=== PATIENT | female | born 1985 | race Caucasian/White ===

== ENCOUNTER 2017-04-21 19:27 | Emergency (ER) | payer OTHER ==
--- NOTE | 2017-04-21 20:39 | EDM.PDOC ---
ED HPI GENERAL MEDICAL PROBLEM - General Chief Complaint: Upper Extremity Injury/Pain Stated Complaint: SWOLLEN/PAINFUL/BRUISED FINGERTIPS ON RIGHT HAND Time Seen by Provider: 04/21/17 20:08 Source of Information: Reports: Patient History Limitations: Reports: No Limitations - History of Present Illness INITIAL COMMENTS - FREE TEXT/NARRATIVE: Patient is a 32-year-old female who presents to the ED complaining of bruising to the pads of her fingers of the right hand. 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 Since onset the swelling has dissipated but the bruising has persisted. It is sensitive with touch. Otherwise she denies any additional complaints. She has no prior symptoms as such. There's been no recent activity that he precipitated this episode. There is no swelling to the remainder part of the hand/arm. She has no past history of carpal tunnel syndrome. Upon onset patient did have some tingling noted to her fingers and hand. It has also dissipated. Patient did complain of some slight increase in pain with walking in the cold. Denied any discoloration to her fingers. She has no history of raynauds. She denies any history of fever/chills, sob, chest pain , or any additional complaints. She has no past medical history and currently taking no medications. Right Hand Pain Score (Numeric/FACES): 5 - Related Data Allergies Allergy/AdvReac Type Severity Reaction Status Date / Time No Known Allergies Allergy Verified 04/21/17 19:38 Home Meds: Home Meds . 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 ED EXAM, GENERAL - Physical Exam Exam: See Below Exam Limited By: No Limitations General Appearance: Alert, WD/WN, No Apparent Distress Ears: Hearing Grossly Normal Nose: Normal Inspection Throat/Mouth: Normal Voice, No Airway Compromise Neck: Normal Inspection, Supple Respiratory/Chest: No Respiratory Distress, Lungs Clear, Normal Breath Sounds, No Accessory Muscle Use Cardiovascular: Normal Peripheral Pulses, Regular Rate, Rhythm, No Murmur Peripheral Pulses: 4+: Radial (L), Radial (R) Extremities: Normal Range of Motion, Non-Tender, No Pedal Edema, Normal Capillary Refill, Other (Faint bruising noted to the pads of the fingers second through fifth. Mild pain with palpation. No swelling present. Patient has full extension and flexion of the fingers. No sensory deficits noted. No pain with palpation of the wrist and forearm elbow upper arm. Skin is pink warm and dry. Tinels test was negative.) Neurological: Alert, Oriented, CN II-XII Intact, Normal Cognition, No Motor/ Sensory Deficits Course - Vital Signs Last Recorded V/S: Last Vital Signs Temp 98.7 F 04/21/17 19:38 Pulse 80 04/21/17 19:38 Resp 16 04/21/17 19:38 BP 141/90 H 04/21/17 19:38 Pulse Ox 99 04/21/17 19:38 - Orders/Labs/Meds Labs: Laboratory Tests 04/21/17 04/21/17 Range/Units 20:47 20:47 WBC 7.98 (3.98-10.04) K/mm3 RBC 4.69 (3.98-5.22) M/mm3 Hgb 13.9 (11.2-15.7) gm/L Hct 40.3 (34.1-44.9) % MCV 85.9 (79.4-94.8) fl MCH 29.6 (25.6-32.2) pg MCHC 34.5 (32.2-35.5) g/dl RDW Std Deviation 39.1 (36.4-46.3) fL Plt Count 276 (182-369) K/mm3 MPV 10.2 (9.4-12.3) fl Neut % (Auto) 63.3 (34.0-71.1) % Lymph % (Auto) 25.6 (19.3-51.7) % [place] % (Auto) 9.6 (4.7-12.5) % Eos % (Auto) 1.3 (0.7-5.8) Baso % (Auto) 0.1 (0.1-1.2) % Neut # (Auto) 5.05 (1.56-6.13) K/mm3 Lymph # (Auto) 2.04 (1.18-3.74) K/mm3 [place] # (Auto) 0.77 H (0.24-0.36) K/mm3 Eos # (Auto) 0.10 (0.04-0.36) K/mm3 Baso # (Auto) 0.01 (0.01-0.08) K/mm3 PT 11.0 (8.0-13.0) SECONDS INR 1.01 APTT 27 (22-36) SECONDS - Re-Assessments/Exams Free Text/Narrative Re-Assessment/Exam: Although patient does not have any history of bleeding disorder. Unclear etiology current complaint. Will obtain basic labs including CBC and PTT/INR. 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 Again I do not have a clear etiology for the current complaint. She has no other complaints on examination. Departure - Departure Time of Disposition: 21:40 Disposition: Home, Self-Care 01 Condition: Good Clinical Impression: Bruising - Discharge Information Referrals: PCP,None [Primary Care Provider] - Forms: ED Department Discharge Additional Instructions: As discussed unclear etiology current complaint. Labs obtained did not reveal any concerning findings. I would just monitor for any changes. Follow-up with primary care provider this following week for reevaluation. Refrain from any activities that cause discomfort to the right hand. Please return back to the ED if you develop any new or worsening symptoms.
== END 2017-04-21 21:48 | disposition home or self-care (01) ==
LOC: JD.ED 19:27
DX: S60.051A Contusion of right little finger without damage to nail, initial encounter (principal); S60.021A Contusion of right index finger without damage to nail, initial encounter; S60.031A Contusion of right middle finger without damage to nail, initial encounter; S60.041A Contusion of right ring finger without damage to nail, initial encounter; X58.XXXA Exposure to other specified factors, initial encounter; Y93.89 Activity, other specified
CPT/HCPCS: 36415; 85025; 85610; 85730; 99282; 99283

== ENCOUNTER 2018-01-15 08:47 | Inpatient (IN) | payer OTHER ==
--- NOTE | 2018-01-16 09:03 | PCM.LDHP ---
L&D History of Present Illness - General Date of Service: 01/16/18 Admit Problem/Dx: Admission Diagnosis/Problem Admission Diagnosis/Problem Source of Information: Patient History Limitations: Reports: No Limitations - History of Present Illness Introduction:: 32-year-old 004 [place] 01/16/18 at estimated gestational age 40 weeks 0 days for induction patient of Dr. Ramos. Blood type O-positive antibody screen negative on 07/04/17 hemoglobin hematocrit 14.9/41.9 platelets 233,000 rubella immune on 10/15/17 hemoglobin 12.8 platelets 172,001 hour OB glucose screen 144 antibody screen negative group B strep not detected on 12/20/17. Patient will undergo induction todayamniotomy performed with clear fluid at 1850 hrs. cervix 2-3 cm dilated 50% effaced posterior soft -1 to -2 vertex or 1 heart rate prior to and after amniotomy Improves with: Reports: None Worsens with: Reports: None Associated Symptoms: Reports: N - Related Data Allergies/Adverse Reactions: Allergies Allergy/AdvReac Type Severity Reaction Status Date / Time No Known Allergies Allergy Verified 04/21/17 19:38 Home Medications: Home Meds . 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 Review of Systems - Review of Systems: Review Of Systems: See Below General: Reports: No Symptoms HEENT: Reports: No Symptoms Pulmonary: Reports: No Symptoms Cardiovascular: Reports: No Symptoms Gastrointestinal: Reports: No Symptoms Genitourinary: Reports: No Symptoms Musculoskeletal: Reports: No Symptoms Skin: Reports: No Symptoms Psychiatric: Reports: No Symptoms Neurological: Reports: No Symptoms Hematologic/Lymphatic: Reports: No Symptoms Immunologic: Reports: No Symptoms L&D Exam - Exam Exam: See Below - Vital Signs Weight: 243 lb - OB Specific Fundal Height In cm: 40 Contraction Intensity: Mild Movement: Active Heart Tones: Present Heart Tones per Min: 135 Heart Rate (FHR) Variability: Moderate (6-25 bmp) Presentation: Vertex - Benavidez Score Benavidez Score Cervix Position: Posterior Benavidez Score Consistency: Soft Benavidez Score Effacement: 31-50% Benavidez Score Dilation: 1-2 cm Benavidez Score Infant's Station: -2 Benavidez Score Total: 5 - Exam General: Alert, Oriented HEENT: Conjunctiva Clear, Mucosa Moist & [place], PERRLA Neck: Supple, Trachea Midline Lungs: Clear to Auscultation, Normal Respiratory Effort Cardiovascular: Regular Rate, Regular Rhythm GI/Abdominal Exam: Normal Bowel Sounds, Soft, Non-Tender Genitourinary: Normal external exam, Normal bimanual exam, Normal speculum exam Extremities: Normal Inspection, Normal Range of Motion, Non-Tender, No Pedal Edema, Normal Capillary Refill Skin: Warm, Dry, Intact Neurological: Reflexes Equal Bilateral Psychiatric: Alert, Normal Affect, Normal Mood - Problem List (1) 40 weeks gestation of SNOMED Code(s): 39989402 ICD Code: Z3A.40 - 40 WEEKS GESTATION OF Status: Acute Current Visit: Yes Problem List Initiated/Reviewed/Updated: No Assessment/Plan Comment:: Plan induction/delivery
[2018-01-16] MEDS ORDERED: Sodium Chloride 0.9% 10 ML Syringe FLUSH PRN (09:12)
[2018-01-16] MEDS ORDERED: Lidocaine 1% 50 ML MDV INJECT PRN (09:12)
[2018-01-16] MEDS ORDERED: Misoprostol 200 MCG Tab PRN (09:12)
[2018-01-16] MEDS ORDERED: Nalbuphine 20 MG/ML 1 ML Syringe IVPUSH PRN (09:12)
[2018-01-16] MEDS ORDERED: Methylergonovine 0.2 MG/1 ML Amp IM PRN (09:12)
[2018-01-16] MEDS ORDERED: Lactated Ringers 1,000 ML IV SCH (09:15)
[2018-01-16] MEDS ORDERED: Oxytocin/Lactated Ringers 10 UNIT/1,000 ML BAG IV SCH (09:15)
--- NOTE | 2018-01-16 15:07 | PCM.SN ---
- Free Text/Narrative Note: Cervix 5 cm, 80%, soft, posterior, Cat I FHR, no change from 1215, started pitocin started at 1355.
--- NOTE | 2018-01-16 16:59 | PCM.SN ---
- Free Text/Narrative Note: , Cervix 6 cm, 80%, soft, posterior, vertex 0 station, Cat I FHR.
[2018-01-16] MEDS ORDERED: Misoprostol 200 MCG Tab ONE (18:16)
[2018-01-16] MEDS ORDERED: Oxytocin 10 Units/1 ML SDV IM ONE (18:20)
[2018-01-16] MEDS ORDERED: Oxytocin 10 Units/1 ML SDV ONE (18:20)
--- NOTE | 2018-01-16 18:44 | PCM.DEL ---
L & D Note - General Info Date of Service: 01/16/18 Mother's Due Date: 01/16/18 - Delivery Note Labor: Induced by ARM Delivery Outcome: Livebirth (Male liveborn Tuesday01/16/18 at 1811 hrs. Apgars 8/ 9 weight 30/4/80 grams 7 pounds 10.8 ounces HOMERO) Delivery Method: Spontaneous Vaginal Delivery-Single Infant Delivery Mode: Spontaneous Presentation: Left Occiput Anterior (HOMERO) Nuchal Cord: None Prep: Povidone-Iodine (Betadine Anesthesia Type: None Episiotomy Type: None Laceration: None Placenta: Intact, Spontaneous (1814 hrs. 01/16/18Tuesday) Cord: 3 Vessels Estimated Blood Loss: 750 Resuscitation Needed: No [place]: Suctioned, Bulb Syringe, Stimulated, Warmed, Jackson Used, Warmer Used Provider: Varun Jenkins Score 1 min: 8 Score 5 min: 9 - General Info Date of Service: 01/16/18 Functional Status: Reports: Pain Controlled - Review of Systems General: Reports: No Symptoms HEENT: Reports: No Symptoms Pulmonary: Reports: No Symptoms Cardiovascular: Reports: No Symptoms Gastrointestinal: Reports: No Symptoms Genitourinary: Reports: No Symptoms Musculoskeletal: Reports: No Symptoms Skin: Reports: No Symptoms Neurological: Reports: No Symptoms Psychiatric: Reports: No Symptoms - Patient Data Vitals - Most Recent: Last Vital Signs Temp 97.5 F 01/16/18 09:13 Pulse 81 01/16/18 16:30 Resp 18 01/16/18 09:13 BP 133/77 01/16/18 16:30 Pulse Ox 96 01/16/18 09:13 Weight - Most Recent: 243 lb I&O - Last 24 Hours: Intake & Output 01/16/18 01/16/18 01/16/18 06:59 14:59 22:59 Intake Total 999 Balance 999 Lab Results Last 24 Hours: Laboratory Results - last 24 hr 01/16/18 01/16/18 01/16/18 Range/Units 09:35 09:35 09:35 WBC 7.97 (3.98-10.04) K/mm3 RBC 4.08 (3.98-5.22) M/mm3 Hgb 12.9 (11.2-15.7) gm/L Hct 37.2 (34.1-44.9) % MCV 91.2 (79.4-94.8) fl MCH 31.6 (25.6-32.2) pg MCHC 34.7 (32.2-35.5) g/dl RDW Std Deviation 43.6 (36.4-46.3) fL Plt Count 177 L (182-369) K/mm3 MPV 10.4 (9.4-12.3) fl Neut % (Auto) 62.5 (34.0-71.1) % Lymph % (Auto) 25.0 (19.3-51.7) % [place] % (Auto) 10.8 (4.7-12.5) % Eos % (Auto) 1.1 (0.7-5.8) Baso % (Auto) 0.3 (0.1-1.2) % Neut # (Auto) 4.99 (1.56-6.13) K/mm3 Lymph # (Auto) 1.99 (1.18-3.74) K/mm3 [place] # (Auto) 0.86 H (0.24-0.36) K/mm3 Eos # (Auto) 0.09 (0.04-0.36) K/mm3 Baso # (Auto) 0.02 (0.01-0.08) K/mm3 RPR Non-reactive (NONREACTIVE) Blood Type O POSITIVE Gel Antibody Screen Negative Med Orders - Current: Current Medications Lactated Ringer's (Ringers, Lactated) 1,000 mls @ 100 mls/hr IV ASDIRECTED MONET Last Admin: 01/16/18 13:49 Dose: 100 mls/hr Oxytocin/Lactated Ringer's (Pitocin In Lr 10 Units/1,000 Ml) 10 unit in 1,000 mls @ 12 mls/hr IV TITRATE MONET; Protocol Last Titration: 01/16/18 17:20 Dose: 16 munits/min, 96 mls/hr Oxytocin 20 unit/ Lactated (Ringer's) 1,002 mls @ 100 mls/hr IV TITRATE MONET Last Infusion: 01/16/18 18:36 Dose: 500 mls/hr Lidocaine HCl (Xylocaine 1%) 50 ml INJECT ASDIRECTED PRN PRN Reason: Pain Methylergonovine Maleate (Methergine) 0.2 mg IM ONETIME PRN PRN Reason: Excessive Vaginal bleeding Nalbuphine HCl (Nubain) 10 mg IVPUSH Q2H PRN PRN Reason: pain Oxytocin (Pitocin) 10 unit IM ONETIME ONE Stop: 01/16/18 18:21 Sodium Chloride (Saline Flush) 10 ml FLUSH ASDIRECTED PRN PRN Reason: Keep Vein Open Discontinued Medications Misoprostol (Cytotec) 400 mcg .XX ASDIRECTED PRN PRN Reason: Bleeding Stop: 01/16/18 09:16 Last Admin: 01/16/18 18:34 Dose: 400 mcg Misoprostol (Cytotec) Confirm Administered Dose 400 mcg .ROUTE .STK-MED ONE Stop: 01/16/18 18:17 Last Admin: 01/16/18 18:35 Dose: Not Given Oxytocin (Pitocin) Confirm Administered Dose 10 unit .ROUTE .STK-MED ONE Stop: 01/16/18 18:21 Last Admin: 01/16/18 18:22 Dose: 10 unit - Problem List & Annotations (1) 40 weeks gestation of SNOMED Code(s): 60225122 Code(s): Z3A.40 - 40 WEEKS GESTATION OF Status: Acute Current Visit: Yes (2) Encounter for full-term uncomplicated delivery SNOMED Code(s): 73926573, 650677894 Code(s): O80 - ENCOUNTER FOR FULL-TERM UNCOMPLICATED DELIVERY Status: Acute Current Visit: Yes - Problem List Review Problem List Initiated/Reviewed/Updated: No - My Orders Last 24 Hours: My Active Orders 01/16/18 09:12 Lidocaine 1% [Xylocaine 1%] 50 ml INJECT ASDIRECTED PRN Methylergonovine [Methergine] 0.2 mg IM ONETIME PRN Nalbuphine [Nubain] 10 mg IVPUSH Q2H PRN Sodium Chloride 0.9% [Saline Flush] 10 ml FLUSH ASDIRECTED PRN Resuscitation Status Routine 01/16/18 09:13 Patient Status [ADT] Routine Activity as Tolerated [RC] PFP Communication Order [RC] ASDIRECTED Heart Tones [RC] ASDIRECTED Notify Provider [RC] PFP Notify Provider [RC] PRN Peripheral IV Care [RC] Q2HR Vital Signs [RC] 03,09,15,21 Electronic Heart Tones Ext w TOCO [WOMSER] Routine Electronic Heart Tones Internal [WOMSER] Per Unit Routine Peripheral IV Insertion Adult [OM.PC] Routine 01/16/18 09:15 Lactated Ringers [Ringers, Lactated] 1,000 ml IV ASDIRECTED Oxytocin/Lactated Ringers [Pitocin in LR 10 Units/1,000 ML] 10 unit in 1,000 ml IV TITRATE 01/16/18 09:30 Oxytocin [Pitocin] 20 unit Lactated Ringers [Ringers, Lactated] 1,000 ml IV TITRATE 01/16/18 09:35 PATIENT RETYPE [BBK] Routine TYPE AND SCREEN [BBK] Routine 01/16/18 18:20 Oxytocin [Pitocin] 10 unit IM ONETIME ONE 01/16/18 Breakfast Regular Diet [DIET] - Plan Plan:: Plan induction/delivery
[2018-01-16] MEDS ORDERED: Lanolin 100% Cream 7 GM Tube TOP PRN (18:52)
[2018-01-16] MEDS ORDERED: Benzocaine/Menthol 20%-0.5% Spray 56 GM Canister TOP PRN (18:52)
[2018-01-16] MEDS ORDERED: Docusate Sodium 100 MG Cap PO PRN (18:52)
[2018-01-16] MEDS ORDERED: Acetaminophen 325 MG Tab PO PRN (18:52)
[2018-01-16] MEDS ORDERED: Ibuprofen 600 MG Tab PO PRN (18:52)
[2018-01-16] MEDS ORDERED: Witch Hazel Medicated Pads 100/Jar TOP PRN (18:52)
--- NOTE | 2018-01-17 08:54 | PCM.DCSUM1 ---
Discharge Summary - Hospital Course Free Text/Narrative:: [facility], [place] LIVE L/D Delivery Note Patient Name: CRISTIANE MURGUIA Date of : 85 Patient Status: Inpatient Attending Provider: Varun Jenkins Date: 01/16/18 18:39 Initialization Date: 01/16/18 18:39 L & D Note - General Info Date of Service: 01/16/18 Mother's Due Date: 01/16/18 - Delivery Note Labor: Induced by ARM Delivery Outcome: Livebirth (Male liveborn Tuesday01/16/18 at 1811 hrs. Apgars 8/ 9 weight 30/4/80 grams 7 pounds 10.8 ounces HOMERO) Infant Delivery Method: Spontaneous Vaginal Delivery-Single Infant Delivery Mode: Spontaneous Presentation: Left Occiput Anterior (HOMERO) Nuchal Cord: None Prep: Povidone-Iodine (Betadine Anesthesia Type: None Episiotomy Type: None Laceration: None Placenta: Intact, Spontaneous (1814 hrs. 01/16/18Tuesday) Cord: 3 Vessels Estimated Blood Loss: 750 Resuscitation Needed: No Wayne: Suctioned, Bulb Syringe, Stimulated, Warmed, Hugoton Used, Warmer Used Provider: Varun Jenkins Score 1 min: 8 Score 5 min: 9 - General Info Date of Service: 01/16/18 Functional Status: Reports: Pain Controlled - Review of Systems General: Reports: No Symptoms HEENT: Reports: No Symptoms Pulmonary: Reports: No Symptoms Cardiovascular: Reports: No Symptoms Gastrointestinal: Reports: No Symptoms Genitourinary: Reports: No Symptoms Musculoskeletal: Reports: No Symptoms Skin: Reports: No Symptoms Neurological: Reports: No Symptoms Psychiatric: Reports: No Symptoms - Patient Data Vitals - Most Recent: Last Vital Signs Temp 97.5 F 01/16/18 09:13 Pulse 81 01/16/18 16:30 Resp 18 01/16/18 09:13 BP 133/77 01/16/18 16:30 Pulse Ox 96 01/16/18 09:13 Weight - Most Recent: 243 lb I&O - Last 24 Hours: Intake & Output 01/16/18 01/16/18 01/16/18 06:59 14:59 22:59 Intake Total 999 Balance 999 Lab Results Last 24 Hours: Laboratory Results - last 24 hr 01/16/18 01/16/18 01/16/18 Range/Units 09:35 09:35 09:35 WBC 7.97 (3.98-10.04) K/mm3 RBC 4.08 (3.98-5.22) M/mm3 Hgb 12.9 (11.2-15.7) gm/L Hct 37.2 (34.1-44.9) % MCV 91.2 (79.4-94.8) fl MCH 31.6 (25.6-32.2) pg MCHC 34.7 (32.2-35.5) g/dl RDW Std Deviation 43.6 (36.4-46.3) fL Plt Count 177 L (182-369) K/mm3 MPV 10.4 (9.4-12.3) fl Neut % (Auto) 62.5 (34.0-71.1) % Lymph % (Auto) 25.0 (19.3-51.7) % [place] % (Auto) 10.8 (4.7-12.5) % Eos % (Auto) 1.1 (0.7-5.8) Baso % (Auto) 0.3 (0.1-1.2) % Neut # (Auto) 4.99 (1.56-6.13) K/mm3 Lymph # (Auto) 1.99 (1.18-3.74) K/mm3 [place] # (Auto) 0.86 H (0.24-0.36) K/mm3 Eos # (Auto) 0.09 (0.04-0.36) K/mm3 Baso # (Auto) 0.02 (0.01-0.08) K/mm3 RPR Non-reactive (NONREACTIVE) Blood Type O POSITIVE Gel Antibody Screen Negative Med Orders - Current: Current Medications Lactated Ringer's (Ringers, Lactated) 1,000 mls @ 100 mls/hr IV ASDIRECTED MONET Last Admin: 01/16/18 13:49 Dose: 100 mls/hr Oxytocin/Lactated Ringer's (Pitocin In Lr 10 Units/1,000 Ml) 10 unit in 1,000 mls @ 12 mls/hr IV TITRATE MONET; Protocol Last Titration: 01/16/18 17:20 Dose: 16 munits/min, 96 mls/hr Oxytocin 20 unit/ Lactated (Ringer's) 1,002 mls @ 100 mls/hr IV TITRATE MONET Last Infusion: 01/16/18 18:36 Dose: 500 mls/hr Lidocaine HCl (Xylocaine 1%) 50 ml INJECT ASDIRECTED PRN PRN Reason: Pain Methylergonovine Maleate (Methergine) 0.2 mg IM ONETIME PRN PRN Reason: Excessive Vaginal bleeding Nalbuphine HCl (Nubain) 10 mg IVPUSH Q2H PRN PRN Reason: pain Oxytocin (Pitocin) 10 unit IM ONETIME ONE Stop: 01/16/18 18:21 Sodium Chloride (Saline Flush) 10 ml FLUSH ASDIRECTED PRN PRN Reason: Keep Vein Open Discontinued Medications Misoprostol (Cytotec) 400 mcg .XX ASDIRECTED PRN PRN Reason: Bleeding Stop: 01/16/18 09:16 Last Admin: 01/16/18 18:34 Dose: 400 mcg Misoprostol (Cytotec) Confirm Administered Dose 400 mcg .ROUTE .STK-MED ONE Stop: 01/16/18 18:17 Last Admin: 01/16/18 18:35 Dose: Not Given Oxytocin (Pitocin) Confirm Administered Dose 10 unit .ROUTE .STK-MED ONE Stop: 01/16/18 18:21 Last Admin: 01/16/18 18:22 Dose: 10 unit - Problem List & Annotations (1) 40 weeks gestation of SNOMED Code(s): 16586872 Code(s): Z3A.40 - 40 WEEKS GESTATION OF Status: Acute Current Visit: Yes (2) Encounter for full-term uncomplicated delivery SNOMED Code(s): 00590119, 078334562 Code(s): O80 - ENCOUNTER FOR FULL-TERM UNCOMPLICATED DELIVERY Status: Acute Current Visit: Yes - Problem List Review Problem List Initiated/Reviewed/Updated: No - My Orders Last 24 Hours: My Active Orders 01/16/18 09:12 Lidocaine 1% [Xylocaine 1%] 50 ml INJECT ASDIRECTED PRN Methylergonovine [Methergine] 0.2 mg IM ONETIME PRN Nalbuphine [Nubain] 10 mg IVPUSH Q2H PRN Sodium Chloride 0.9% [Saline Flush] 10 ml FLUSH ASDIRECTED PRN Resuscitation Status Routine 01/16/18 09:13 Patient Status [ADT] Routine Activity as Tolerated [RC] PFP Communication Order [RC] ASDIRECTED Heart Tones [RC] ASDIRECTED Notify Provider [RC] PFP Notify Provider [RC] PRN Peripheral IV Care [RC] Q2HR Vital Signs [RC] 03,09,15,21 Electronic Heart Tones Ext w TOCO [WOMSER] Routine Electronic Heart Tones Internal [WOMSER] Per Unit Routine Peripheral IV Insertion Adult [OM.PC] Routine 01/16/18 09:15 Lactated Ringers [Ringers, Lactated] 1,000 ml IV ASDIRECTED Oxytocin/Lactated Ringers [Pitocin in LR 10 Units/1,000 ML] 10 unit in 1,000 ml IV TITRATE 01/16/18 09:30 Oxytocin [Pitocin] 20 unit Lactated Ringers [Ringers, Lactated] 1,000 ml IV TITRATE 01/16/18 09:35 PATIENT RETYPE [BBK] Routine TYPE AND SCREEN [BBK] Routine 01/16/18 18:20 Oxytocin [Pitocin] 10 unit IM ONETIME ONE 01/16/18 Breakfast Regular Diet [DIET] - Plan Plan:: Plan induction/delivery HPI Initial Comments: [facility], [place] LIVE L/D Delivery Note Patient Name: CRISTIANE MURGUIA Date of : 85 Patient Status: Inpatient Attending Provider: Varun Jenkins Date: 01/16/18 18:39 Initialization Date: 01/16/18 18:39 L & D Note - General Info Date of Service: 01/16/18 Mother's Due Date: 01/16/18 - Delivery Note Labor: Induced by ARM Delivery Outcome: Livebirth (Male liveborn Tuesday01/16/18 at 1811 hrs. Apgars 8/ 9 weight 30/4/80 grams 7 pounds 10.8 ounces HOMERO) Delivery Method: Spontaneous Vaginal Delivery-Single Delivery Mode: Spontaneous Presentation: Left Occiput Anterior (HOMERO) Nuchal Cord: None Prep: Povidone-Iodine (Betadine Anesthesia Type: None Episiotomy Type: None Laceration: None Placenta: Intact, Spontaneous (1814 hrs. 01/16/18Tuesday) Cord: 3 Vessels Estimated Blood Loss: 750 Resuscitation Needed: No : Suctioned, Bulb Syringe, Stimulated, Warmed, Hugoton Used, Warmer Used Provider: Varun Jenkins Score 1 min: 8 Score 5 min: 9 - General Info Date of Service: 01/16/18 Functional Status: Reports: Pain Controlled - Review of Systems General: Reports: No Symptoms HEENT: Reports: No Symptoms Pulmonary: Reports: No Symptoms Cardiovascular: Reports: No Symptoms Gastrointestinal: Reports: No Symptoms Genitourinary: Reports: No Symptoms Musculoskeletal: Reports: No Symptoms Skin: Reports: No Symptoms Neurological: Reports: No Symptoms Psychiatric: Reports: No Symptoms - Patient Data Vitals - Most Recent: Last Vital Signs Temp 97.5 F 01/16/18 09:13 Pulse 81 01/16/18 16:30 Resp 18 01/16/18 09:13 BP 133/77 01/16/18 16:30 Pulse Ox 96 01/16/18 09:13 Weight - Most Recent: 243 lb I&O - Last 24 Hours: Intake & Output 01/16/18 01/16/18 01/16/18 06:59 14:59 22:59 Intake Total 999 Balance 999 Lab Results Last 24 Hours: Laboratory Results - last 24 hr 01/16/18 01/16/18 01/16/18 Range/Units 09:35 09:35 09:35 WBC 7.97 (3.98-10.04) K/mm3 RBC 4.08 (3.98-5.22) M/mm3 Hgb 12.9 (11.2-15.7) gm/L Hct 37.2 (34.1-44.9) % MCV 91.2 (79.4-94.8) fl MCH 31.6 (25.6-32.2) pg MCHC 34.7 (32.2-35.5) g/dl RDW Std Deviation 43.6 (36.4-46.3) fL Plt Count 177 L (182-369) K/mm3 MPV 10.4 (9.4-12.3) fl Neut % (Auto) 62.5 (34.0-71.1) % Lymph % (Auto) 25.0 (19.3-51.7) % [place] % (Auto) 10.8 (4.7-12.5) % Eos % (Auto) 1.1 (0.7-5.8) Baso % (Auto) 0.3 (0.1-1.2) % Neut # (Auto) 4.99 (1.56-6.13) K/mm3 Lymph # (Auto) 1.99 (1.18-3.74) K/mm3 [place] # (Auto) 0.86 H (0.24-0.36) K/mm3 Eos # (Auto) 0.09 (0.04-0.36) K/mm3 Baso # (Auto) 0.02 (0.01-0.08) K/mm3 RPR Non-reactive (NONREACTIVE) Blood Type O POSITIVE Gel Antibody Screen Negative Med Orders - Current: Current Medications Lactated Ringer's (Ringers, Lactated) 1,000 mls @ 100 mls/hr IV ASDIRECTED MONET Last Admin: 01/16/18 13:49 Dose: 100 mls/hr Oxytocin/Lactated Ringer's (Pitocin In Lr 10 Units/1,000 Ml) 10 unit in 1,000 mls @ 12 mls/hr IV TITRATE MONET; Protocol Last Titration: 01/16/18 17:20 Dose: 16 munits/min, 96 mls/hr Oxytocin 20 unit/ Lactated (Ringer's) 1,002 mls @ 100 mls/hr IV TITRATE MONET Last Infusion: 01/16/18 18:36 Dose: 500 mls/hr Lidocaine HCl (Xylocaine 1%) 50 ml INJECT ASDIRECTED PRN PRN Reason: Pain Methylergonovine Maleate (Methergine) 0.2 mg IM ONETIME PRN PRN Reason: Excessive Vaginal bleeding Nalbuphine HCl (Nubain) 10 mg IVPUSH Q2H PRN PRN Reason: pain Oxytocin (Pitocin) 10 unit IM ONETIME ONE Stop: 01/16/18 18:21 Sodium Chloride (Saline Flush) 10 ml FLUSH ASDIRECTED PRN PRN Reason: Keep Vein Open Discontinued Medications Misoprostol (Cytotec) 400 mcg .XX ASDIRECTED PRN PRN Reason: Bleeding Stop: 01/16/18 09:16 Last Admin: 01/16/18 18:34 Dose: 400 mcg Misoprostol (Cytotec) Confirm Administered Dose 400 mcg .ROUTE .STK-MED ONE Stop: 01/16/18 18:17 Last Admin: 01/16/18 18:35 Dose: Not Given Oxytocin (Pitocin) Confirm Administered Dose 10 unit .ROUTE .STK-MED ONE Stop: 01/16/18 18:21 Last Admin: 01/16/18 18:22 Dose: 10 unit - Problem List & Annotations (1) 40 weeks gestation of SNOMED Code(s): 60735489 Code(s): Z3A.40 - 40 WEEKS GESTATION OF Status: Acute Current Visit: Yes (2) Encounter for full-term uncomplicated delivery SNOMED Code(s): 74642385, 726390700 Code(s): O80 - ENCOUNTER FOR FULL-TERM UNCOMPLICATED DELIVERY Status: Acute Current Visit: Yes - Problem List Review Problem List Initiated/Reviewed/Updated: No - My Orders Last 24 Hours: My Active Orders 01/16/18 09:12 Lidocaine 1% [Xylocaine 1%] 50 ml INJECT ASDIRECTED PRN Methylergonovine [Methergine] 0.2 mg IM ONETIME PRN Nalbuphine [Nubain] 10 mg IVPUSH Q2H PRN Sodium Chloride 0.9% [Saline Flush] 10 ml FLUSH ASDIRECTED PRN Resuscitation Status Routine 01/16/18 09:13 Patient Status [ADT] Routine Activity as Tolerated [RC] PFP Communication Order [RC] ASDIRECTED Heart Tones [RC] ASDIRECTED Notify Provider [RC] PFP Notify Provider [RC] PRN Peripheral IV Care [RC] Q2HR Vital Signs [RC] 03,09,15,21 Electronic Heart Tones Ext w TOCO [WOMSER] Routine Electronic Heart Tones Internal [WOMSER] Per Unit Routine Peripheral IV Insertion Adult [OM.PC] Routine 01/16/18 09:15 Lactated Ringers [Ringers, Lactated] 1,000 ml IV ASDIRECTED Oxytocin/Lactated Ringers [Pitocin in LR 10 Units/1,000 ML] 10 unit in 1,000 ml IV TITRATE 01/16/18 09:30 Oxytocin [Pitocin] 20 unit Lactated Ringers [Ringers, Lactated] 1,000 ml IV TITRATE 01/16/18 09:35 PATIENT RETYPE [BBK] Routine TYPE AND SCREEN [BBK] Routine 01/16/18 18:20 Oxytocin [Pitocin] 10 unit IM ONETIME ONE 01/16/18 Breakfast Regular Diet [DIET] - Plan Plan:: Plan induction/delivery Brief History: [facility], [place] LIVE . L/D Delivery Note. Patient Name: CRISTIANE MURGUIA [facility] Record Number: [id number]. Date of : Patient Status: Inpatient. Attending Provider: Varun Jenkins Number: [id number]. Date: 01/16/18 18:39Initialization Date: 01/16/18 18:39. L & D Note. - General Info. Date of Service: 01/16/18. Mother's Due Date: 01/16/18. - Delivery Note. Labor: Induced by ARM. Delivery Outcome: Livebirth (Male liveborn Tuesday01/16/18 at 1811 hrs. Apgars 8/9 weight 30/4/80 grams 7 pounds 10.8 ounces HOMERO). Infant Delivery Method: Spontaneous Vaginal Delivery-Single. Delivery Mode: Spontaneous. Presentation: Left Occiput Anterior (HOMERO). Nuchal Cord: None. Prep: Povidone-Iodine (Betadine. Anesthesia Type: None. Episiotomy Type: None. Laceration: None. Placenta: Intact, Spontaneous (1814 hrs. 01/16/18Tuesday). Cord: 3 Vessels. Estimated Blood Loss: 750. Resuscitation Needed: No. Wayne: Suctioned, Bulb Syringe, Stimulated, Warmed, Hugoton Used, Warmer Used. Provider: Varun Jenkins. Score 1 min: 8. Score 5 min: 9. - General Info. Date of Service: 01/16/18. Functional Status: Reports: Pain Controlled. - Review of Systems. General: Reports: No Symptoms. HEENT: Reports: No Symptoms. Pulmonary: Reports: No Symptoms. Cardiovascular: Reports: No Symptoms. Gastrointestinal: Reports: No Symptoms. Genitourinary: Reports: No Symptoms. Musculoskeletal: Reports: No Symptoms. Skin: Reports: No Symptoms. Neurological: Reports: No Symptoms. Psychiatric: Reports: No Symptoms. - Patient Data. Vitals - Most Recent: Last Vital Signs. Temp 97.5 F 01/16/18 09:13. Pulse 81 01/16/18 16:30. Resp 18 01/16/18 09:13. BP 133/77 16:30. Pulse Ox 96 01/16/18 09:13. Weight - Most Recent: 243 lb. I&O - Last 24 Hours: Intake & Output. 01/16/181004/1809. 06:5914:5922:59. Intake [id number]. [id number]. Lab Results Last 24 Hours: Laboratory Results - last 24 hr. 01/16/181004/1809Range/Units. 09:3509:3509:35. WBC 7.97 ( 3.98-10.04) K/mm3. RBC 4.08 (3.98-5.22) M/mm3. Hgb 12.9 (11.2-15.7) gm/L. Hct 37.2 (34.1-44.9) %. MCV 91.2 (79.4-94.8) fl. MCH 31.6 (25.6-32.2) pg. MCHC 34.7 (32.2-35.5) g/dl. RDW Std Deviation 43.6 (36.4-46.3) fL. Plt Count 177 L (182-369) K/mm3. MPV 10.4 (9.4-12.3) fl. Neut % (Auto) 62.5 ( 34.0-71.1) %. Lymph % (Auto) 25.0 (19.3-51.7) %. [place] % (Auto) 10.8 (4.7- 12.5) %. Eos % (Auto) 1.1 (0.7-5.8). Baso % (Auto) 0.3 (0.1-1.2) %. Neut # (Auto) 4.99 (1.56-6.13) K/mm3. Lymph # (Auto) 1.99 (1.18-3.74) K/mm3. [place] # (Auto) 0.86 H (0.24-0.36) K/mm3. Eos # (Auto) 0.09 (0.04-0.36) K/mm3. Baso # (Auto) 0.02 (0.01-0.08) K/mm3. RPR Non-reactive (NONREACTIVE). Blood Type O POSITIVE. Gel Antibody Screen Negative. Med Orders - Current: Current Medications. Lactated Ringer's (Ringers, Lactated) 1,000 mls @ 100 mls/hr IV ASDIRECTED MONET. Last Admin: 01/16/18 13:49 Dose: 100 mls/hr. Oxytocin/ Lactated Ringer's (Pitocin In Lr 10 Units/1,000 Ml) 10 unit in 1,000 mls @ 12 mls/hr IV TITRATE MONET; Protocol. Last Titration: 01/16/18 17:20 Dose: 16 munits/min, 96 mls/hr. Oxytocin 20 unit/ Lactated (Ringer's) 1,002 mls @ 100 mls/hr IV TITRATE MONET. Last Infusion: 01/16/18 18:36 Dose: 500 mls/hr. Lidocaine HCl (Xylocaine 1%) 50 ml INJECT ASDIRECTED PRN. PRN Reason: Pain. Methylergonovine Maleate (Methergine) 0.2 mg IM ONETIME PRN. PRN Reason: Excessive Vaginal bleeding. Nalbuphine HCl (Nubain) 10 mg IVPUSH Q2H PRN. PRN Reason: pain. Oxytocin (Pitocin) 10 unit IM ONETIME ONE. Stop: 01/16/18 18:21. Sodium Chloride (Saline Flush) 10 ml FLUSH ASDIRECTED PRN. PRN Reason : Keep Vein Open. Discontinued Medications. Misoprostol (Cytotec) 400 mcg .XX ASDIRECTED PRN. PRN Reason: Bleeding. Stop: 01/16/18 09:16. Last Admin: 01/16/18 18:34 Dose: 400 mcg. Misoprostol (Cytotec) Confirm Administered Dose 400 mcg .ROUTE .STK-MED ONE. Stop: 01/16/18 18:17. Last Admin: 01/16/18 18:35 Dose: Not Given. Oxytocin (Pitocin) Confirm Administered Dose 10 unit .ROUTE .STK-MED ONE. Stop: 01/16/18 18:21. Last Admin: 01/16/18 18:22 Dose: 10 unit. - Problem List & Annotations. (1) 40 weeks gestation of . SNOMED Code(s): 34015902. Code(s): Z3A.40 - 40 WEEKS GESTATION OF Status: Acute Current Visit: Yes. (2) Encounter for full-term uncomplicated delivery. SNOMED Code(s): 86227987, 466997305. Code(s): O80 - ENCOUNTER FOR FULL-TERM UNCOMPLICATED DELIVERY Status: Acute Current Visit: Yes. - Problem List Review. Problem List Initiated/Reviewed/Updated: No. - My Orders. Last 24 Hours: My Active Orders. 01/16/18 09:12. Lidocaine 1% [ Xylocaine 1%] 50 ml INJECT ASDIRECTED PRN. Methylergonovine [Methergine] 0.2 mg IM ONETIME PRN. Nalbuphine [Nubain] 10 mg IVPUSH Q2H PRN. Sodium Chloride 0.9% [Saline Flush] 10 ml FLUSH ASDIRECTED PRN. Resuscitation Status Routine. 01/16/18 09:13. Patient Status [ADT] Routine. Activity as Tolerated [RC] PFP. Communication Order [RC] ASDIRECTED. Heart Tones [RC ] ASDIRECTED. Notify Provider [RC] PFP. Notify Provider [RC] PRN. Peripheral IV Care [RC] Q2HR. Vital Signs [RC] 03,09,15,21. Electronic Heart Tones Ext w TOCO [WOMSER] Routine. Electronic Heart Tones Internal [WOMSER] Per Unit Routine. Peripheral IV Insertion Adult [OM.PC] Routine. 01/16/18 09: 15. Lactated Ringers [Ringers, Lactated] 1,000 ml IV ASDIRECTED. Oxytocin/ Lactated Ringers [Pitocin in LR 10 Units/1,000 ML] 10 unit in 1,000 ml IV TITRATE. 01/16/18 09:30. Oxytocin [Pitocin] 20 unit Lactated Ringers [ Ringers, Lactated] 1,000 ml IV TITRATE. 01/16/18 09:35. PATIENT RETYPE [BBK] Routine. TYPE AND SCREEN [BBK] Routine. 01/16/18 18:20. Oxytocin [Pitocin] 10 unit IM ONETIME ONE. 01/16/18 Breakfast. Regular Diet [DIET]. - Plan. Plan:: Plan induction/delivery Diagnosis: Stroke: No - Discharge Data Discharge Date: 01/17/18 Discharge Disposition: Home, Self-Care 01 Condition: Good - Discharge Diagnosis/Problem(s) (1) 40 weeks gestation of SNOMED Code(s): 20840530 ICD Code: Z3A.40 - 40 WEEKS GESTATION OF Status: Acute Current Visit: Yes (2) Encounter for full-term uncomplicated delivery SNOMED Code(s): 24406408, 512173035 ICD Code: O80 - ENCOUNTER FOR FULL-TERM UNCOMPLICATED DELIVERY Status: Acute Current Visit: Yes - Patient Summary/Data Complications: none Consults: none Hospital Course: uneventful - Patient Instructions Diet: Usual Diet as Tolerated Driving: Do Not Drive (x48 hrs) Showering/Bathing: May Shower Notify Provider of: Fever, Increased Pain, Swelling and Redness, Drainage, Nausea and/or Vomiting - Discharge Plan *PRESCRIPTION DRUG MONITORING PROGRAM REVIEWED*: Not Applicable *COPY OF PRESCRIPTION DRUG MONITORING REPORT IN PATIENT CHRISTIAN: Not Applicable Home Medications: Home Meds Acetaminophen [Tylenol] 650 mg PO Q6H PRN tablet 01/17/18 [Rx] Benzocaine/Menthol [Dermoplast Pain Relief [place]] 1 spray TOP ASDIRECTED PRN canister 01/17/18 [Rx] Docusate Sodium [Colace] 100 mg PO BID PRN cap 01/17/18 [Rx] Ibuprofen [Motrin] 600 mg PO Q4H PRN tablet 01/17/18 [Rx] Lanolin [Lansinoh HPA] 1 applic TOP ASDIRECTED PRN tube 01/17/18 [Rx] Witch Ria [Tucks] 1 pad TOP ASDIRECTED PRN pad 01/17/18 [Rx] Referrals: Varun Jenkins MD [Primary Care Provider] - (Will call Dr Bhagat for appointment) - Discharge Summary/Plan Comment DC Time >30 min.: No - Patient Data Vitals - Most Recent: Last Vital Signs Temp 98.1 F 01/17/18 03:29 Pulse 92 01/17/18 03:29 Resp 15 01/17/18 03:29 BP 126/70 01/17/18 03:29 Pulse Ox 99 01/17/18 03:29 Weight - Most Recent: 243 lb I&O - Last 24 hours: Intake & Output 01/16/18 01/17/18 01/17/18 22:59 06:59 14:59 Intake Total 999 Balance 999 Lab Results - Last 24 hrs: Laboratory Results - last 24 hr 01/16/18 01/16/18 01/16/18 Range/Units 09:35 09:35 09:35 WBC 7.97 (3.98-10.04) K/mm3 RBC 4.08 (3.98-5.22) M/mm3 Hgb 12.9 (11.2-15.7) gm/L Hct 37.2 (34.1-44.9) % MCV 91.2 (79.4-94.8) fl MCH 31.6 (25.6-32.2) pg MCHC 34.7 (32.2-35.5) g/dl RDW Std Deviation 43.6 (36.4-46.3) fL Plt Count 177 L (182-369) K/mm3 MPV 10.4 (9.4-12.3) fl Neut % (Auto) 62.5 (34.0-71.1) % Lymph % (Auto) 25.0 (19.3-51.7) % [place] % (Auto) 10.8 (4.7-12.5) % Eos % (Auto) 1.1 (0.7-5.8) Baso % (Auto) 0.3 (0.1-1.2) % Neut # (Auto) 4.99 (1.56-6.13) K/mm3 Lymph # (Auto) 1.99 (1.18-3.74) K/mm3 [place] # (Auto) 0.86 H (0.24-0.36) K/mm3 Eos # (Auto) 0.09 (0.04-0.36) K/mm3 Baso # (Auto) 0.02 (0.01-0.08) K/mm3 RPR Non-reactive (NONREACTIVE) Blood Type O POSITIVE Gel Antibody Screen Negative 01/17/18 Range/Units 06:42 WBC 11.50 H (3.98-10.04) K/mm3 RBC 3.50 L (3.98-5.22) M/mm3 Hgb 11.0 L (11.2-15.7) gm/L Hct 31.9 L (34.1-44.9) % MCV 91.1 (79.4-94.8) fl MCH 31.4 (25.6-32.2) pg MCHC 34.5 (32.2-35.5) g/dl RDW Std Deviation 42.5 (36.4-46.3) fL Plt Count 163 L (182-369) K/mm3 MPV 10.6 (9.4-12.3) fl Neut % (Auto) 70.1 (34.0-71.1) % Lymph % (Auto) 17.8 L (19.3-51.7) % [place] % (Auto) 10.9 (4.7-12.5) % Eos % (Auto) 0.7 (0.7-5.8) Baso % (Auto) 0.2 (0.1-1.2) % Neut # (Auto) 8.07 H (1.56-6.13) K/mm3 Lymph # (Auto) 2.05 (1.18-3.74) K/mm3 [place] # (Auto) 1.25 H (0.24-0.36) K/mm3 Eos # (Auto) 0.08 (0.04-0.36) K/mm3 Baso # (Auto) 0.02 (0.01-0.08) K/mm3 RPR (NONREACTIVE) Blood Type Gel Antibody Screen Med Orders - Current: Current Medications Acetaminophen (Tylenol) 650 mg PO Q4H PRN PRN Reason: mild pain or fever Last Admin: 01/16/18 21:23 Dose: 650 mg Benzocaine/Menthol (Dermoplast Pain Relief [place]) 0 gm TOP ASDIRECTED PRN PRN Reason: Perineal Comfort Measure Docusate Sodium (Colace) 100 mg PO BID PRN PRN Reason: Constipation Emollient Ointment (Lansinoh Hpa) 0 gm TOP ASDIRECTED PRN PRN Reason: Sore Nipples Ibuprofen (Motrin) 600 mg PO Q4H PRN PRN Reason: Mild pain or fever Witch Ria (Tucks) 1 pad TOP ASDIRECTED PRN PRN Reason: Hemorrhoid pain Discontinued Medications Lactated Ringer's (Ringers, Lactated) 1,000 mls @ 100 mls/hr IV ASDIRECTED MONET Last Admin: 01/16/18 13:49 Dose: 100 mls/hr Oxytocin/Lactated Ringer's (Pitocin In Lr 10 Units/1,000 Ml) 10 unit in 1,000 mls @ 12 mls/hr IV TITRATE MONET; Protocol Last Titration: 01/16/18 17:20 Dose: 16 munits/min, 96 mls/hr Oxytocin 20 unit/ Lactated (Ringer's) 1,002 mls @ 100 mls/hr IV TITRATE MONET Last Infusion: 01/16/18 18:36 Dose: 500 mls/hr Lidocaine HCl (Xylocaine 1%) 50 ml INJECT ASDIRECTED PRN PRN Reason: Pain Methylergonovine Maleate (Methergine) 0.2 mg IM ONETIME PRN PRN Reason: Excessive Vaginal bleeding Misoprostol (Cytotec) 400 mcg .XX ASDIRECTED PRN PRN Reason: Bleeding Stop: 01/16/18 09:16 Last Admin: 01/16/18 18:34 Dose: 400 mcg Misoprostol (Cytotec) Confirm Administered Dose 400 mcg .ROUTE .STK-MED ONE Stop: 01/16/18 18:17 Last Admin: 01/16/18 18:35 Dose: Not Given Nalbuphine HCl (Nubain) 10 mg IVPUSH Q2H PRN PRN Reason: pain Oxytocin (Pitocin) Confirm Administered Dose 10 unit .ROUTE .STK-MED ONE Stop: 01/16/18 18:21 Last Admin: 01/16/18 18:22 Dose: 10 unit Sodium Chloride (Saline Flush) 10 ml FLUSH ASDIRECTED PRN PRN Reason: Keep Vein Open
== END 2018-01-17 18:46 | disposition home or self-care (01) | DRG 807 ==
LOC: JD.OB 01-16 06:19 → OBSVTOIN 01-16 18:11 → JD.OB 01-16 18:12
PROVIDERS: ADMIT Obstetrics & Gynecology; ATTEND Obstetrics & Gynecology
PROC: 10E0XZZ Delivery of Products of Conception, External Approach (ICD-10-PCS; principal; 2018-01-16)
PROC: 10907ZC Drainage of Amniotic Fluid, Therapeutic from Products of Conception, Via Natural or Artificial Opening (ICD-10-PCS; principal; 2018-01-16)
PROC: 3E02340 Introduction of Influenza Vaccine into Muscle, Percutaneous Approach (ICD-10-PCS; 2018-01-17)
DX: O48.0 Post-term pregnancy (principal); Z37.0 Single live birth; Z3A.40 40 weeks gestation of pregnancy; Z23 Encounter for immunization
CPT/HCPCS: 36415; 59025; 59409; 85025; 86592; 86850; 86900; 86901; 90686; A9270-GY; G0008; J2590; J7120

== ENCOUNTER 2018-06-30 19:56 | Emergency (ER) | payer OTHER ==
[2018-06-30] MEDS ORDERED: Diphtheria,Pertussis(Acell),Tetanus Vaccine 0.5 ML Syringe IM ONE (20:14)
[2018-06-30] MEDS ORDERED: Lidocaine 1% with EPINEPHrine 1:100,000 20 ML MDV INJECT ONE (20:14)
--- NOTE | 2018-06-30 20:16 | EDM.PDOC ---
ED HPI GENERAL MEDICAL PROBLEM - General Chief Complaint: Laceration Stated Complaint: CUT INSIDE OF RIGHT HAND Time Seen by Provider: 06/30/18 20:14 Source of Information: Reports: Patient History Limitations: Reports: No Limitations - History of Present Illness INITIAL COMMENTS - FREE TEXT/NARRATIVE: Patient is a 33-year-old female presents ED complaining of a recent right laceration to the palm of her right hand. Patient was unloading name of and when it became too heavy. Patient was dropping the stove and was attempting to remove her hand from being crushed she cut it on the piece of metal. Bleeding controlled with direct pressure. Pain is mild in nature localized with no radiation. She has no sensation deficits or motor deficits noted as well. Right Hand Pain Score (Numeric/FACES): 3 - Related Data Allergies Allergy/AdvReac Type Severity Reaction Status Date / Time No Known Allergies Allergy Verified 06/30/18 20:16 Home Meds: Home Meds . [No Known Home Meds] 06/30/18 [History] Past Medical History - Past Health History Medical/Surgical History: Denies Medical/Surgical History [employer] History: Reports: Social & Family History - Family History Family Medical History: Noncontributory - Caffeine Use Caffeine Use: Reports: None ED ROS GENERAL - Review of Systems Review Of Systems: ROS reveals no pertinent complaints other than HPI. ED EXAM, SKIN/RASH Exam: See Below Exam Limited By: No Limitations General Appearance: Alert, WD/WN, No Apparent Distress Ears: Hearing Grossly Normal Nose: Normal Inspection Throat/Mouth: Normal Voice, No Airway Compromise Neck: Normal Inspection, Supple Respiratory/Chest: No Respiratory Distress, No Accessory Muscle Use Cardiovascular: Normal Peripheral Pulses, Regular Rate, Rhythm Peripheral Pulses: 2+: Radial (R) Extremities: Other (3 cm deep laceration to the right palm. No foreign debris noted. Pain is localized with no radiation. She is able to flex and extend the second and third digit with no complications. No sensory deficits noted.) Neurological: Alert, Oriented, CN II-XII Intact, Normal Cognition, No Motor/ Sensory Deficits Psychiatric: Normal Affect, Normal Mood Skin: Warm, Dry, Normal Color ED SKIN PROCEDURES - Laceration/Wound Repair Right Ventral Hand Lac/Wound length In cm: 3 Appearance: Subcutaneous, Clean Distal NVT: Neuro & Vascular Intact, No Tendon Injury Anesthetic Type: Local Local Anesthesia - Lidocaine (Xylocaine): 1% with EPI Local Anesthetic Volume: 4cc Skin Prep: Chlorhexidine (Hibiciens), Saline, Sterile Drape Exploration/Debridement/Repair: Wound Explored, In a Bloodless Field, Explored to Base, No Foreign Material Found Closed with: Sutures Suture Size: 4-0 # of Sutures: 5 Suture Type: Prolene, Interrupted, Simple Sterile Dressing Applied: Nurse Tetanus Status Addressed: Yes Complications: No Course - Vital Signs Last Recorded V/S: Last Vital Signs Temp 98.7 F 06/30/18 20:05 Pulse 95 06/30/18 20:05 Resp 18 06/30/18 20:05 BP 144/92 H 06/30/18 20:05 Pulse Ox 99 06/30/18 20:05 - Orders/Labs/Meds Orders: Active Orders 24 hr Category Date Time Status Vaccines to be Administered [RC] PER UNIT ROUTINE Care 06/30/18 20:15 Active Meds: Medications Discontinued Medications Generic Name Dose Route Start Last Admin Trade Name Dylan PRN Reason Stop Dose Admin Diphtheria/Tetanus/Acell Pertussis 0.5 ml 06/30/18 20:14 06/30/18 20:30 Adacel IM 06/30/18 20:15 0.5 ml .ONCE ONE Administration Lidocaine/Epinephrine 20 ml 06/30/18 20:14 06/30/18 20:30 Xylocaine 1% With Epinephrine 1:100,000 INJECT 06/30/18 20:15 20 ml ONETIME ONE Administration - Re-Assessments/Exams Free Text/Narrative Re-Assessment/Exam: Ordered Adacel and lidocaine with epi. Laceration closed with no complications. Discharge instructions as documented. Departure - Departure Time of Disposition: 20:21 Disposition: Home, Self-Care 01 Condition: Good Clinical Impression: Laceration of hand Qualifiers: Encounter type: initial encounter Foreign body presence: with foreign body Laterality: right Qualified Code(s): S61.421A - Laceration with foreign body of right hand, initial encounter - Discharge Information Instructions: Laceration Care, Adult, [id number], Stitches, Shakira, or Adhesive Wound Closure, [id number] Referrals: PCP,None [Primary Care Provider] - Forms: ED Department Discharge Additional Instructions: Cleanse site twice daily, PAT dry, reapply bacitracin ointment. Keep area clean and dry. Do not soak wound. Followup with a provider at [facility] in 10 days for suture removal free of charge. Return back to the ED for increased redness, increased swelling, or purulent drainage. - My Orders Last 24 Hours: My Active Orders 06/30/18 20:15 Vaccines to be Administered [RC] PER UNIT ROUTINE - Assessment/Plan Last 24 Hours: My Active Orders 06/30/18 20:15 Vaccines to be Administered [RC] PER UNIT ROUTINE
== END 2018-06-30 21:23 | disposition home or self-care (01) ==
LOC: JD.ED 19:56
DX: S61.421A Laceration with foreign body of right hand, initial encounter (principal); Z23 Encounter for immunization; W26.8XXA Contact with other sharp object(s), not elsewhere classified, initial encounter
CPT/HCPCS: 12002; 90471; 90700; 99282